=== PATIENT | male | born 1980 | race Caucasian/White ===

== ENCOUNTER 2018-12-11 11:46 | Emergency (ER) | payer BC ==
[2018-12-11] MEDS ORDERED: Ibuprofen TAB* 600 MG PO ONE (12:45)
--- NOTE | 2018-12-11 14:04 | ED ---
Upper Extremity Pain - HPI Summary HPI Summary: Patient is a 38-year-old male presenting to the ED after a FOOSH injury to the right hand. He states he fell off a six-foot ladder earlier this morning. Denies any head injury or LOC. Denies any back pain. He denies any forearm, shoulder or wrist pain. He is exclusively complaining of pain directly over the dorsum of the hand. Denies any numbness or tingling to the fingertips. He states he caught his fall directly with his right hand. Denies any ecchymosis. There appears to be a deformity in the dorsum of the hand with swelling. He is able to flex and extend about the wrist joint without discomfort. Pain is worse to palpation, better with rest. He has not tried any medication [employer]. - History of Current Complaint Chief Complaint: EDExtremityUpper Stated Complaint: RIGHT HAND INJURY PER PT Time Seen by Provider: 12/11/18 11:58 Hx Obtained From: Patient Onset/Duration: Started Hours Ago Timing: Constant Severity Initially: Moderate Severity Currently: Moderate Pain Location: Hand Character: Aching Aggravating Factor(s): Movement, Lifting, Flexion, Extension Alleviating Factor(s): Rest, Ice Associated Signs & Symptoms: Positive: Swelling. Negative: Redness, Bruising, Weakness, Numbness/Tingling, Nausea, Vomiting Related History: Dominant Hand Right - Risk Factors Non-Orthopedic Risk Factor: Negative DVT Risk Factors: Negative Septic Arthritis Risk Factor: Negative Compartment Syndrome Risk Factors: Pain - Allergies/Home Medications Allergies/Adverse Reactions: Allergies Allergy/AdvReac Type Severity Reaction Status Date / Time No Known Allergies Allergy Verified 12/11/18 11:52 Home Medications: Home Medications Levothyroxine TAB* [Synthroid TAB*] 125 mcg PO DAILY 12/11/18 [History Confirmed 12/11/18] PMH/Surg Hx/FS Hx/Imm Hx Previously Healthy: Yes Psychiatric History: Denies: Hx Eating Disorder, Hx of Violent Episodes Against Others - Immunization History Hx Pertussis Vaccination: No - with Immunizations Up to Date: Yes Infectious Disease History: No Infectious Disease History: Denies: Traveled Outside the [place] in Last 30 Days - Social History Occupation: Employed Full-time Lives: With Family Alcohol Use: None Hx Substance Use: No Substance Use Type: Reports: None Hx Tobacco Use: No Smoking Status (MU): Never Smoked Tobacco Review of Systems Constitutional: Negative Negative: Fever, Chills, Fatigue, Skin Diaphoresis Negative: Palpitations, Chest Pain Negative: Shortness Of Breath, Cough Genitourinary: Negative Positive: no symptoms reported, see HPI Negative: Arthralgia, Myalgia Neurological: Negative All Other Systems Reviewed And Are Negative: Yes Physical Exam Triage Information Reviewed: Yes Vital Signs On Initial Exam: Initial Vitals Temp Pulse Resp BP Pulse Ox 98.2 F 54 14 123/79 99 12/11/18 11:53 12/11/18 11:53 12/11/18 11:53 12/11/18 11:53 12/11/18 11:53 Vital Signs Reviewed: Yes Appearance: Positive: Well-Appearing, Well-Nourished Skin: Positive: Warm, Skin Color Reflects Adequate Perfusion Head/Face: Positive: Normal Head/Face Inspection Eyes: Positive: EOMI, Conjunctiva Clear Neck: Positive: Supple, No Lymphadenopathy Respiratory/Lung Sounds: Positive: Clear to Auscultation, Breath Sounds Present Cardiovascular: Positive: RRR, Pulses are Symmetrical in both Upper and Lower Extremities Musculoskeletal: Positive: Strength/ROM Intact, Pain @ - left dorsal hand pain Neurological: Positive: Speech Normal Psychiatric: Positive: Normal, Affect/Mood Appropriate AVPU Assessment: Alert Procedures - Splinting Right Upper Extremity Hand-Made Type: plaster Splint: radial gutter splint Pre-Proc Neuro Vasc Exam: normal Post-Proc Neuro Vasc Exam: normal Diagnostics - Vital Signs Vital Signs Temp Pulse Resp BP Pulse Ox 12/11/18 11:53 98.2 F 54 14 123/79 99 - Laboratory Lab Statement: Any lab studies that have been ordered have been reviewed, and results considered in the medical decision making process. Course/Dx - Course Course Of Treatment: During the course of treatment, the patient is evaluated for right hand pain. There is swelling and obvious deformity to the dorsum of the hand without ecchymosis, numbness or tingling. Pulses +2 intact bilaterally to the radial pulse. No pain to palpation over the wrist, forearm, elbow, shoulder joint. Thumb opposition intact. Flexion and extension of the MCP joint with pain, however patient is able to flex and extend. Good cap refill. X-ray obtained which shows a slightly displaced oblique fracture of the third MCP. Discussed case with Dr. Vila. He recommends radial gutter splint and follow-up in his office on Thursday. Patient is okay for discharge at this time. He is given ibuprofen 600mg while in the ED. - Diagnoses Differential Diagnosis/HQI/PQRI: Positive: Fracture (Closed) Provider Diagnoses: Metacarpal bone fracture - Physician Notifications Discussed Care of Patient With: Guy Vila Discharge - Sign-Out/Discharge Documenting (check all that apply): Patient Departure Patient Received Moderate/Deep Sedation with Procedure: No - Discharge Plan Condition: Stable Disposition: HOME Patient Education Materials: Hand Fracture (ED) Referrals: Guy Vila MD [Medical Doctor] - No Primary Care Phys,NOPCP [Primary Care Provider] - Additional Instructions: Please follow up with Dr. Vila on Thursday You will call Thursday to make an appt I have given you name and phone number Ibuprofen 600mg three times daily Keep arm in splint and keep dry until follow up - Billing Disposition and Condition Condition: STABLE Disposition: Home
[2018-12-11 14:40] VITALS: BP 111/76
== END 2018-12-11 14:39 | disposition home or self-care (01) ==
LOC: ED 11:46
DX: S62.302A Unspecified fracture of third metacarpal bone, right hand, initial encounter for closed fracture (principal); W11.XXXA Fall on and from ladder, initial encounter; Z79.890 Hormone replacement therapy
CPT/HCPCS: 99282; A9270-GY

== ENCOUNTER → 2018-12-17 10:44 | Day surgery (SDC) | payer BC ==
[~2018-12-17 10:44] MED LIST: Buffered Lidocaine 1% SYRIN* 1 ML/SYRINGE INTRADERM ONE; Bupivacaine 0.25% SDV PF* 10 ML VIAL INJ ONE; Dexamethasone IV* 4 MG/ML 1 ML (4 MG) ONE; DiMENhydriNATE IV* 50 MG/ML VIAL IV PUSH PRN; HYDROcodone/ACETAMIN 5-325 MG* 1 TAB ONE; HYDROcodone/ACETAMIN 5-325 MG* 1 TAB PO PRN; HYDROmorphone INJ1* 1 MG/ML SYRINGE IV PRN; HYDROmorphone INJ1* 1 MG/ML SYRINGE ONE; Ketorolac INJ* 30 MG/ML 1 ML VIAL ONE; Lactated Ringers 1000 ML Bag* 1,000 ML IV SCH; Lidocaine 2% PF * 5 ML VIAL ONE; Midazolam* 1 MG/ML 5 ML VIAL (5 MG) ONE; Naloxone* 0.4 MG/ML 1 ML VIAL IV PRN; Ondansetron INJ* 2 MG/ML VIAL ONE; Propofol* 10 MG/ML 20 ML BTL ONE; ceFAZolin 2 GM PREMIX in ORs 2 GM/50 ML BAG IVPB ONE; fentaNYL* 50 MCG/ML 2 ML VIAL (100 MCG VIAL) ONE
[2018-12-17 15:35] VITALS: BP 128/77
--- NOTE | 2018-12-17 22:37 | OP ---
OPERATIVE REPORT: DATE OF OPERATION: 12/17/18 DATE OF : 82 SURGEON: Guy Vila MD. DIRECTOR PRODUCT DEVELOPMENT: [employer]. ANESTHESIOLOGIST: Dr. Jackson. ANESTHESIA: General. PRE-OP DIAGNOSIS: Right third displaced metacarpal shaft fracture. POST-OP DIAGNOSIS: Right third displaced metacarpal shaft fracture. OPERATIVE PROCEDURE: Open reduction internal fixation of the right third metacarpal shaft fracture. INDICATIONS: Vladimir has a displaced and rotated third metacarpal shaft fracture. We talked about ris ks and benefits. He wanted to proceed. ESTIMATED BLOOD LOSS: 2 mL. COMPLICATIONS: None. FINDINGS: See above and below. DESCRIPTION OF PROCEDURE: Vladimir was seen in the preoperative holding area. The correct site, side, and procedure were identified. We came back to the operating room. The arm was prepped and draped in the usual fashion. A time-out was performed. The arm was exsanguinated with the Esmarch and the tourniquet was inflated to 250 mmHg. I made a mid line incision over the dorsum of the third metacarpal. Dissection was carried down traversing sensory nerves and were preserved by raising full-thickness flaps off the paratenon. The interval between t he EIP and the middle finger EDC was utilized. There was not really a juncture there. The perioste um was incised longitudinally over the fracture. The fracture hematoma was debrided until I had nice, clean, bony edges. There was a butterfly fragment. All 3 fragments were reduced back to the anatom ic position and held in place with point reduction clamp. The alignment was confirmed on mini C-arm fluoroscopy. I then placed three 1.5-mm lag screws. They were counter-sunk. I then brought in a 2. 0- mm plate and this was placed in the appropriate position and then secured with variable angle loc jamie screws proximally and bicortical cortical screws distally. Again this was all Synthesis variable angle handset. The alignment was anatomic. The screw lengths were good. Everything was confirmed o n x-ray. We irrigated out the wound. The periosteum was closed with 4-0 Prolene suture to completel y cover the plate. The skin was closed with 4-0 nylon suture. 0.25% plain Marcaine was infiltrated . The wound was dressed, and a short-arm splint was applied. Tourniquet was deflated. He was taken to the recovery room in stable condition. [id number]/[facility] #: [id number]
== END | disposition home or self-care (01) ==
LOC: OR 10:44
PROVIDERS: ATTEND Orthopaedic Surgery Hand Surgery
DX: S62.322A Displaced fracture of shaft of third metacarpal bone, right hand, initial encounter for closed fracture (principal); W13.2XXA Fall from, out of or through roof, initial encounter; Y92.9 Unspecified place or not applicable; Z87.891 Personal history of nicotine dependence; E03.9 Hypothyroidism, unspecified; M19.90 Unspecified osteoarthritis, unspecified site
CPT/HCPCS: 76000; C1713; C1776; J0690; J1100; J1170; J1885; J2250; J2405; J2704; J3010; J3490